=== PATIENT | male | born 1985 | race Caucasian/White ===

== ENCOUNTER → 2016-11-12 | Outpatient (CLI) | payer BC ==
[~2016-11-12] MED LIST: LORCET 5-325 M1 EACH PO; NO MEDICATIONS; PANTOPRAZOLE SO40 MG PO; PHENERGAN25 M1 PO; ZOFRAN PO
--- NOTE | ~2016-11-12 | NM22 ---
[facility] A Service of [facility] RADIOLOGY TEXT RESULTS PATIENT: AMARA WHITFIELD LOCATION: [facility] : 85 UNIT #: [id number] AGE: [address]: Dl Hart MD SEX: M ORDER DR: [id number] [facility] [address] [facility] [address] [place] [place], [place] [address] [id number] O MR#: [id number] Acc #: [id number] NAME: AMARA WHITFIELD : 1985 SEX: M STUDY DATE/TIME: 11/12/2016 15:08 UNIT: [facility] ROOM: STUDY DESCRIPTION: NM Hepatobiliary W GB Pharm Attending Physician: Dl Hart M.D. Referring Physician: Dl Hart M.D. Ordering Physician: Dl Hart M.D. Primary Care Physician: Dl Hart M.D. MEDICAL IMAGING REPORT This report is preliminary unless electronic signature is present EXAM HIDA scan with Kinevac CCK, 11/12/16. HISTORY Right upper quadrant abdominal pain usually after fatty meals during the night with abdominal bloating and gas. Symptoms for 3 years. FINDINGS The patient received an intravenous injection of 5.55 mCi of technetium 99m tagged Choletec for hepatobiliary imaging. One hour following the injection of the radiopharmaceutical the patient received an intravenous injection of 1.8 mcg of Kinevac. There is homogeneous distribution of radiotracer throughout the liver. Gallbladder activity was seen by 15 minutes postinjection of the radiopharmaceutical. Following Kinevac injection, the gallbladder ejection fraction was 97.5% (normal is greater than 30%). IMPRESSION Normal HIDA scan with gallbladder ejection fraction of 97.5%. Dictated by... Marcos Infante M.D. THIS IS AN ELECTRONICALLY VERIFIED REPORT Marcos Infante M.D. at 11/13/2016 9:24 AM MIKE/carolyne TD: 11/12/2016 21:53 JOB #: [id number] MEDICAL IMAGING REPORT Page 1 of 1 COPY
== END | disposition home or self-care (01) ==
LOC: CNUC 11:36
DX: R10.11 Right upper quadrant pain (principal)
CPT/HCPCS: 78227; A9537; J2805

== ENCOUNTER → 2016-12-27 | Day surgery (SDC) | payer BC ==
--- NOTE | ~2016-12-27 | OR ---
Unit #: [id number] #: [id number] Patient: AMARA WHITFIELD [id number] [address] [place], [place] [address] [id number] O MR#: [id number] NAME: AMARA WHITFIELD ROOM: Date of Procedure: 12/27/2016 Admission Date: 12/27/2016 Surgeon: Elvin Castro M.D. : 1985 Attending Physician: Elvin Castro M.D. Primary Care Physician: Dl Hart M.D. OPERATIVE REPORT PREOPERATIVE DIAGNOSES Dyspepsia and right upper quadrant abdominal pain. PROCEDURES PERFORMED Upper gastrointestinal endoscopy. POSTOPERATIVE DIAGNOSES 1. The patient had grade 2 distal erosive esophagitis and erosions ascending above the Z-line and distal esophagus. 2. Rest of the examination up to third part of duodenum was normal. RECOMMENDATIONS 1. Pantoprazole 40 mg p.o. daily. 2. The patient will be followed up in the office in 8 weeks' time. SEDATION USED MAC. DESCRIPTION OF PROCEDURE Following detailed explanation of the potential risks and complications of an upper endoscopy, namely perforation, bleeding, and complications related to sedation, the patient was brought to GI lab and laid in the left lateral decubitus position. Lubricated tip of the Olympus video upper endoscope was passed through the bite block into the proximal esophagus under direct vision. The entire esophageal mucosa was examined and appeared normal. Z-line was nicely demarcated, there being grade 2 distal erosive esophagitis. There was no hiatus hernia. There was also presence of a nonobstructing distal esophageal Schatzki ring. The scope was then advanced into the gastric cavity and the latter was insufflated. Mucosa of the fundus, body, and antrum examined and appeared unremarkable. Pylorus was intubated with visualization of the normal duodenal bulb and second and third part of the duodenum. Upon withdrawal and retroflexion, incisura, cardia, and greater curve examined and no additional findings noted. The scope was then withdrawn in the distal esophagus. The entire esophageal mucosa was examined all the way up to pharynx. The scope was then withdrawn all the way up to pharynx. No additional findings noted. The patient tolerated the procedure without any postprocedure complications. Dictated by... Elvin Castro M.D. Unit #: [id number] #: [id number] Patient: AMARA WHITFIELD KEO/alejandro TD: 12/27/2016 17:05 JOB #: [id number] OPERATIVE REPORT Page 1 of 1 X Elvin Castro MD PROCEDURE OPERATIVE NOTE
--- NOTE | ~2016-12-27 | CR84 ---
[facility] A Service of [facility] & [facility] RADIOLOGY TEXT RESULTS PATIENT: AMARA WHITFIELD LOCATION: [facility] : 85 UNIT #: [id number] AGE: [address]: Elvin Castro MD SEX: M ORDER DR: [id number] [facility] [address] [facility]. [place], [place] [address] [id number] O MR#: [id number] Acc #: [id number] NAME: AMARA WHITFIELD : 1985 SEX: M STUDY DATE/TIME: 12/27/2016 14:58 UNIT: [facility] ROOM: STUDY DESCRIPTION: CR ERCP Biliary and Pancr SI Attending Physician: Elvin Castro M.D. Ordering Physician: Elvin Castro M.D. Primary Care Physician: Dl Hart M.D. MEDICAL IMAGING REPORT This report is preliminary unless electronic signature is present EXAM ERCP, 12/27/2016. HISTORY Right upper quadrant abdominal pain and dilated common bile duct on 12/27/2016. FINDINGS ERCP was performed by Dr. Castro. Six spot film radiographs of the abdomen were obtained and 25 seconds of fluoroscopy time was utilized. Contrast injection of the pancreatic duct was normal. Contrast injection of the biliary tree reveals dilatation of the common bile duct. No filling defects or strictures were seen. There is normal contrast drainage into the duodenum and the distal common bile duct near the sphincter of Oddi was normal. Sphincterotomy was performed by Dr. Castro. A balloon catheter was pulled retrograde through the common duct but no stones were obtained as per Dr. Castro. Dictated by... Marcos Infante M.D. THIS IS AN ELECTRONICALLY VERIFIED REPORT Marcos Infante M.D. at 12/30/2016 6:08 AM MIKE/carolyne TD: 12/27/2016 22:39 JOB #: [id number] MEDICAL IMAGING REPORT Page 1 of 1 COPY
--- NOTE | ~2016-12-27 | OR ---
Unit #: [id number] #: [id number] Patient: AMARA WHITFIELD [id number] [address] [address] [id number] O MR#: [id number] NAME: AMARA WHITFIELD ROOM: Date of Procedure: 12/27/2016 Admission Date: 12/27/2016 Surgeon: Elvin Castro M.D. : 1985 Attending Physician: Elvin Castro M.D. Primary Care Physician: Dl Hart M.D. OPERATIVE REPORT PREOPERATIVE DIAGNOSES The patient has presented with history of right upper quadrant abdominal pain, which is intermittent and intense. In addition, he has been found to have a dilated common bile duct about 11 mm on ultrasound. Incidentally, his liver function studies are normal. PROCEDURES PERFORMED 1. Endoscopic retrograde cholangiopancreatography and sphincterotomy. 2. Endoscopic retrograde cholangiopancreatography and balloon sweep. POSTOPERATIVE DIAGNOSES The patient had evidence of dilated common bile duct about 10 mm with suggestion of papillary stenosis. After a sphincterotomy, the duct was swept with a 9 to 12 mm retrieval balloon multiple times and no stones or debris were seen or delivered. The cystic duct was patent and the gallbladder appeared normal. RECOMMENDATIONS The patient will be followed up in the office in 8 weeks' time. SEDATION USED MAC. DESCRIPTION OF PROCEDURE Following detailed explanation of potential risks and complications of an ERCP, namely perforation, bleeding, complication related to sedation, and pancreatitis, the patient was brought to GI lab and laid in the left semiprone position. Sedation using MAC was given. A lateral-viewing duodenoscope was advanced through the oral cavity into the esophagus and advanced into the stomach. Pylorus was intubated in the usual fashion. The scope was advanced in deep descending duodenum. Upon shortening the scope, major papilla and ampullary area was visualized en face. Using guidewire based cannulation, the common bile duct was cannulated. The guidewire was then advanced into the common bile duct. Contrast cholangiogram was obtained. The latter revealed common bile duct being dilated about 10 mm; however, it was smooth and tapering, there being no filling defects were seen. A limited sphincterotomy is performed and the duct was swept with a 9 to 12 mm retrieval balloon 3 to 4 times. No stones or debris were delivered or seen. Excellent drainage of the bile was seen. Also, the cystic duct was patent and the gallbladder appeared normal. The scope and the accessories were then withdrawn. The patient returned to the recovery area. He tolerated the procedure without any Unit #: [id number] #: [id number] Patient: AMARA WHITFIELD postprocedure complications. Dictated by... Alexx Ramos/alejandro TD: 12/27/2016 17:03 JOB #: [id number] OPERATIVE REPORT Page 1 of 1 X Elvin Castro MD X PROCEDURE OPERATIVE NOTE
== END | disposition home or self-care (01) ==
LOC: COPS 13:16
DX: K20.8 Other esophagitis (principal); K22.10 Ulcer of esophagus without bleeding; K22.2 Esophageal obstruction; K83.8 Other specified diseases of biliary tract; Z98.890 Other specified postprocedural states
CPT/HCPCS: 74330; J1610; J2250; J2550; J3010

== ENCOUNTER 2016-12-30 11:04 | Inpatient (IN) | payer BC ==
[~2016-12-30] VITALS: Ht 182.9 cm; Wt 88.4 kg
--- NOTE | ~2016-12-30 | CT2 ---
[facility] A Service of [facility] & [facility] RADIOLOGY TEXT RESULTS PATIENT: AMARA WHITFIELD LOCATION: [facility] 239-01 : [birth year] UNIT #: [id number] AGE: [address]: Elvin Castro MD SEX: M ORDER DR: [id number] [facility] [address] [facility] [place], [place] [address] [id number] I MR#: [id number] Acc #: [id number] NAME: AMARA WHITFIELD : 1985 SEX: M STUDY DATE/TIME: 12/30/2016 21:46 UNIT: C2A ROOM: 239 STUDY DESCRIPTION: CT Abd and Pelv W Cont Attending Physician: Elvin Castro M.D. Referring Physician: Alana Tapia Aprn Ordering Physician: Elvin Castro M.D. Primary Care Physician: Dl Hart M.D. MEDICAL IMAGING REPORT This report is preliminary unless electronic signature is present EXAM Abdomen and pelvis CT with contrast 12/30/2016 INDICATIONS 31-year-old male with history of acute pancreatitis following the ERCP procedure. Diffuse abdominal pain, bilateral flank pain since having ERCP done on Friday. TECHNIQUE Contrast enhanced CT of the abdomen and pelvis was performed. This CT exam was performed with one or more of the following radiation dose reduction techniques: automatic exposure control, adjustment of mA and/or kV according to patient size, and iterative reconstruction. COMPARISON 12/28/2016. FINDINGS CT ABDOMEN: Included lung bases are clear. There is a noncalcified nodule in the right middle lobe measuring 5 mm. If the patient is at low risk for malignancy, then follow-up CT should occur in 12 months. If the patient is at high risk, followup should occur at 6-12 months. This is indeterminate. Aorta demonstrates no aneurysm or dissection. Circum-aortic left renal vein present as an anatomic variant. Spleen and adrenal glands are normal. Kidneys unremarkable. Incidental tiny left renal cyst measures less than a centimeter. Liver demonstrates pneumobilia. There is also pneumobilia associated with the gallbladder and probable vicarious excretion of contrast or dense contrast material/sludge within the gallbladder, similar to the prior study. No new evidence of intra- or extrahepatic biliary ductal dilatation. [facility] A Service of [facility] RADIOLOGY TEXT RESULTS PATIENT: AMARA WHITFIELD LOCATION: C[facility] 239-01 : 85 UNIT #: [id number] AGE: [address]: Elvin Castro MD SEX: M ORDER DR: There is stranding of the pancreaticoduodenal groove and the peripancreatic fat planes, particularly in the region of the head and uncinate process, most characteristic of acute pancreatitis. There is no new evidence of peripancreatic fluid collection or pseudocyst at this time. There has been interval increase in stranding surrounding the SMV and its tributaries. There is admixture of contrast or perhaps a small amount of incompletely occlusive thrombus within the SMV just proximal to its confluence with the splenic vein and main portal vein (axial image 32). CT PELVIS: Bladder unremarkable. Prostate within normal limits. No drainable fluid collection in the pelvis or free fluid. Bowel demonstrates no obstruction or focal inflammatory change. The appendix is normal. Inguinal canals are unremarkable. Osseous structures demonstrate no suspicious bone lesion. IMPRESSION 1. Imaging findings most characteristic of acute pancreatitis. Probable slight interval worsening of acute pancreatitis compared to the prior study. There is, however, no new drainable fluid collection or new pancreatic ductal dilatation. 2. There is increased stranding in the distribution of the SMV and there is either admixture of contrast or incompletely occlusive thrombus within the SMV, just proximal to its confluence with the splenic vein and main portal vein. This is best demonstrated on axial image number 32. Findings were called to the patient's nurse at the time this dictation with instructions to notify the primary care team. 3. Re-demonstration of pneumobilia involving the gallbladder and intrahepatic biliary system. Probable vicarious excretion of contrast within the gallbladder. 4. There is no evidence of bowel obstruction. The appendix is normal. 5. 5 mm indeterminate on calcified lung nodule right middle lobe. See follow-up recommendations in the body of the report. STAT * RESULT Dictated by... Nicolas Akhtar M.D. THIS IS AN ELECTRONICALLY VERIFIED REPORT Nicolas Akhtar M.D. at 12/30/2016 11:22 PM ERIC/olga TD: 12/30/2016 22:56 JOB #: [id number] [facility]. [facility] A Service of [facility] RADIOLOGY TEXT RESULTS PATIENT: AMARA WHITFIELD LOCATION: [facility] 239-01 : 85 UNIT #: [id number] AGE: [address]: Elvin Castro MD SEX: M ORDER DR: MEDICAL IMAGING REPORT Page 1 of 1 COPY
--- NOTE | ~2016-12-30 | A ---
[facility] Nutrition Therapy DATE: 12/31/16 Patient: AMARA WHITFIELD Physician: MIGUEL Address: [address] [place] [address] Room/Bed: [address] [place] [address], Zip: [place] [address] Admit Date: 12/30/16 Date of : 85 Height: Weight: NUTRITIONAL ASSESSMENT: REASON: 3 NUTRITION RISK PT RE: WEIGHT LOSS PT IS 31 Y.O. MALE ADMITTED FOR ABD PAIN, ACUTE PANCREATITIS PMH: NO KNOWN PMH Anthropometrics: 6'4", WT: 184# (STANDING SCALE) (83.6 KG), BMI: 22.4 Labs: NA+:133, ALB: 3.4 Meds: KCL, PHENERGAN I/O & Bowel function: 3194/2049, LAST BM PER PT 5 DAYS AGO Skin Integrity: NO KNOWN SKIN ISSUES Estimated Nutrition Needs: INCREASED NEEDS 2' WEIGHT LOSS NOTED, DECREASED PO INTAKE AND APPETITE Assessment: CHART REVIEWED AND EVENTS NOTED. PT SEEN FOR 3 NUTRITION RISK PT RE: 15# WEIGHT LOSS. PT REPORTS DECREASED PO INTAKE AND APPETITE PAST 4-5 DAYS D/T ABD PAIN. PT REPORTS LOSING ~15# PAST 4-5 DAYS/SEVERE WEIGHT LOSS NOTED. PT REQUESTED TO BE WEIGHED SO RD BROUGHT STANDING SCALE IN ROOM AND PT WEIGHED TO BE ~184#. PT STATES HIS UBW IS ~198#. THIS RD ENCOURAGED SLOW GRADUAL PO INTAKE, PT AGREED TO ENSURE CLEAR BID, RD TO ORDER. PT REPORTED NO DIET QUESTIONS AT THIS TIME. PLANS IN PLACE TO AWAIT CT SCAN RESULTS. Dx: UNINTENTIONAL WEIGHT LOSS R/T ABD PAIN, DECREASED PO INTAKE AEB PT REPORT ABOVE, ~15# WEIGHT LOSS NOTED IN PAST 4-5 DAYS. Intervention: 1. CLEAR LIQUID DIET 2. ENSURE CLEAR BID Monitoring, Evaluation and Goals: 1. ORAL INTAKE; ADVANCE DIET AND CONSUME/TOLERATE >50% OF MEALS AND SUPPLEMENTS 2. WEIGHTS; PROMOTE HEALTHY WEIGHT MAINTENANCE; PREVENT FURTHER UNINTENTIONAL WEIGHT LOSS 3. LABS; WNL MONITOR: -DIET ADVANCEMENT/PO INTAKE/APPETITE -WEIGHTS [facility] Nutrition Therapy DATE: 12/31/16 Patient: AMARA WHITFIELD Physician: MIGUEL Address: [address] [place] [address] Room/Bed: [address] [place] [address], Zip: [place] [address] Admit Date: 12/30/16 Date of : [birth year] Height: Weight: -LABS Recommendations: 1. PLEASE ORDER MIXED CERVANTES ENSURE CLEAR BID W/MEALS 2. ONCE MEDICALLY FEASIBLE, ADVANCE DIET TO REGULAR -IF CT SCAN CONFIRMS PANCREATITIS OR SBO, ADVANCE DIET TO LOW FAT OR LOW FIBER DIET 3. ONCE DIET ADVANCES, PLEASE ORDER APPROPRIATE SUPPLEMENTS (ENSURE ENLIVE, PUDDING, OR MAGIC CUP) FOR ADDITIONAL PROTEIN AND KCAL 4. ENCOURAGE ADEQUATE PO INTAKE RD WILL F/U PER PROTOCOL PT IS MODERATELY COMPROMISED Respectfully, MARIELA JOHNSON MS, RD, LD [facility] cc: client file
--- NOTE | ~2016-12-30 | DS ---
Unit #: [id number] #: [id number] Patient: AMARA WHITFIELD [id number] [address] [address] [id number] I MR#: [id number] NAME: AMARA WHITFIELD ROOM: 239 Age: 31 Sex: M Admission Date: 12/30/2016 : 1985 Discharge Date: 01/02/2017 Attending Physician: Elvin Castro M.D. Referring Physician: Alana Tapia Aprn Primary Care Physician: Dl Hatr M.D. DISCHARGE SUMMARY FINAL DIAGNOSES 1. Post endoscopic retrograde cholangiopancreatography mild pancreatitis. 2. 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 CONSULTATION OBTAINED DURING CURRENT HOSPITALIZATION Dr. Mateo Shah - Hematology. DISCHARGE MEDICATIONS These included: 1. Zofran 4 mg p.o. q.8 hours p.r.n. nausea. 2. Hydrocodone/acetaminophen 5/325, one p.o. p.r.n. pain q.4 hours. 3. Pantoprazole 40 mg p.o. daily. FOLLOWUP Patient will follow up with me on 01/09/17 at 2 p.m. in the office. Additionally, follow up with Dr. Shah in two weeks. He is also scheduled to have a CT scan of the abdomen and pelvis on Friday, the . This is primarily to look for any (1) thrombus which was somewhat doubtful in the first instance. ISSA Fung is a 31-year-old gentleman who underwent ERCP for dilated common bile duct. The patient underwent an ERCP that showed dilated common bile duct with no defined stricture. Although there was cannulation of the pancreatic duct, slight contrast of the pancreas ended up causing chemical pancreatitis. Patient was thus admitted with pancreatic pain. During his evaluation, CT scan showed doubtful thrombus in the superior mesenteric vein. Dr. Shah was consulted and it was felt that there was no indication for anticoagulation and that this might resolve spontaneously. The repeat CT scan is to address that issue. Dictated by... Alexx Ramos/donald TD: 01/03/2017 11:16 JOB #: [id number] Unit #: [id number] #: [id number] Patient: AMARA WHITFIELD DISCHARGE SUMMARY Page 1 of 1 X Elvin Castro MD X DISCHARGE SUMMARY
--- NOTE | ~2016-12-30 | HP ---
Unit #: [id number] #: [id number] Patient: KENTON WHITFIELD [id number] [address] [address] [id number] I MR#: [id number] NAME: KENTON WHITFIELD ROOM: 239 Age: 31 Sex: M Admission Date: 12/30/2016 : 1985 Attending Physician: Elvin Castro M.D. Referring Physician: Alana Tapia Aprn Primary Care Physician: Dl Hart M.D. HISTORY AND PHYSICAL REASON FOR ADMISSION Abdominal and back pain for the past 48 hours. HISTORY Kenton underwent an ERCP on December 27, 2016. The ERCP was uneventful and basically showed a dilated common bile duct but no stones and mild papillary stenosis. Patient was discharged home feeling well. He came that night to the emergency room and was found to have an amylase and lipase in the 546 range. Patient settled down with oral analgesia and remained well until he came to the office today complaining of pain pretty much diffusely in his abdomen and bilateral both flanks. His appetite has been changed, and he denies any history of vomiting. There is no history of fever, chills, or rigors. PAST MEDICAL HISTORY Right upper quadrant abdominal pain for which the ERCP was done in view of the dilated common bile duct. Patient has had no prior other medical history and has had no abdominal surgeries. MEDICATIONS He is not on any regular medications except for recently prescribed hydrocodone and acetaminophen combination. ALLERGIES No drug allergies. 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 FAMILY HISTORY No family history of colon or pancreatic cancer or liver disease. REVIEW OF SYSTEMS A detailed review of organ systems does not reveal any fever, chills, or rigors, no history of headaches, seizures, chest pain, or syncope, no history of cough, expectoration, or hemoptysis, no history of dysuria, hematuria, or pyuria, and no history of focal seizures or extremity weakness. The rest of the review of organ systems is unremarkable. PHYSICAL EXAMINATION GENERAL: He is awake, alert, oriented, and appears to be in pain. VITAL SIGNS: Stable with temperature of 98.3, pulse 69 per minute and regular, respiratory rate is 18, and blood pressure is 125/76. He weighs 88.4 kg and his BMI is 23. Unit #: [id number] #: [id number] Patient: KENTON WHITFIELD HEENT: He has no pallor, icterus, lymphadenopathy, or peripheral edema. CARDIOVASCULAR: Normal heart sounds. No murmurs. CHEST: Auscultation over the lungs reveals normal breath sounds and good air entry. ABDOMEN: Soft, there being no area of exquisite rigidity, rebound, or guarding. Patient does mention bilateral renal angle tenderness, but this is not reproducible. Bowel sounds are normal. (1) are also normal. DIAGNOSTIC STUDIES LABORATORY: White count of 15,000 with a left shift and no bands, hemoglobin is 15, and platelet count is 243,000. Serum chemistry shows a normal BUN and creatinine, sodium of 134, and potassium of 4. His amylase and lipase are 48 and 28, respectively. Urinalysis shows 1+ protein and no RBCs. CLINICAL IMPRESSION The etiology of patient's abdominal pain and flank pain is unclear. His ERCP was essentially uneventful and a HIDA scan was done prior to ERCP which was normal. Will obtain a CT scan of the abdomen and pelvis with oral and IV contrast and in the meantime keep the patient on IV fluids, clear liquid diet, and analgesia with Dilaudid. He will be reviewed again in the morning, and any further recommendations will be made thereafter. Dictated by Alexx Ramos/marilyn TD: 12/30/2016 20:12 JOB #: [id number] HISTORY AND PHYSICAL Page 1 of 1 X Elvin Castro MD X HISTORY AND PHYSICAL
--- NOTE | ~2016-12-30 | CO ---
Unit #: [id number] #: [id number] Patient: KENTON WHITFIELD [id number] [address] [place], [place] [address] [id number] MR#: [id number] NAME: KENTON WHITFIELD ROOM: 239 Age: 31 Sex: M Admission Date: 12/30/2016 : 1985 Attending Physician: Elvin Castro M.D. Primary Care Physician: Dl Hart M.D. Consultation Date: 12/31/2016 CONSULTATION REPORT REASON FOR CONSULTATION Superior mesenteric vein thrombosis; please evaluate. HISTORY OF PRESENT ILLNESS Mr. Kenton Whitfield is 31 years old with a history of recurrent abdominal pain who, as part of workup, underwent an ERCP on December 27, 2016 for workup of a dilated common bile duct, undergoing a sphincterotomy for mild papillary stenosis. Post procedure four hours later he developed abdominal pain, came to the emergency room, was treated for pancreatitis and discharged home. He presented again back to Dr. Castro's office on 12/30/2016 complaining of more diffuse severe abdominal pain and has been admitted for IV fluids and intravenous pain medications. As part of workup, he underwent a CT scan of the abdomen and pelvis done on 12/30/2016. CT scan revealed pneumobilia of the gallbladder and liver. There was stranding of the pancreatoduodenal groove and peripancreatic fat planes, particularly in the region of the head and uncinate process, most characteristic of acute pancreatitis with interval stranding around the SMV and its tributaries. There is admixture of contrast or perhaps a small amount of incomplete occlusive thrombus in the SMV just proximal to its confluence with the splenic vein and main portal vein leading to this consultation. Mr. Whitfield has been started on Lovenox 60 mg twice a day while awaiting this consultation. He tells me that he continues to remain sore in his abdomen and started clear liquids, which he is tolerating without any nausea. He is constipated, not having had a bowel movement since last . PAST HISTORY Recurrent abdominal pain in the right upper quadrant, thought in the past to be related to constipation, and after a change in diet, this has improved to be q.6 months. An EGD showed gastritis. An ultrasound had shown a dilated CBD leading to his ERCP. PAST SURGICAL HISTORY Meniscectomy by arthroscopic surgery. FAMILY HISTORY Negative for DVT or pulmonary embolism. SOCIAL HISTORY Never smoker. Rarely drinks any alcohol. He is and lives with his . REVIEW OF SYSTEMS A 14-point review of systems was taken. Unit #: [id number] #: [id number] Patient: KENTON WHITFIELD CONSTITUTIONAL: As discussed. EYES: Negative. EARS, NOSE, MOUTH AND THROAT: Negative. CARDIOVASCULAR: Negative. RESPIRATORY: Negative. GASTROINTESTINAL: As discussed. GENITOURINARY: Negative. NEUROLOGIC: Negative. ALLERGIC/LYMPHATICS: Negative. SKIN: Negative. PSYCHIATRIC: Negative. PHYSICAL EXAMINATION GENERAL: On examination this is a pleasant (1) . Performance is a 1. VITALS: Temperature is 98.9, pulse rate 60, blood pressure 130/75, respiratory rate 16. Weight is 194 pounds. HEENT: Head examination shows the pupils are equal and react well to light. No pallor or icterus. Mucous membranes are moist. NECK: Neck without adenopathy, JVD or thyromegaly. CARDIOVASCULAR SYSTEM: First and second heart sounds were heard. Regular with no murmurs, gallops or rubs. LUNGS: Chest expansion is symmetric. Bilateral equal entry with normal breath sounds. ABDOMEN: Abdomen is soft. Slightly tender in the right upper quadrant. Bowel sounds are present. EXTREMITIES: Extremities are warm with good pulses. No edema, cyanosis or clubbing. NEUROLOGIC: He is awake, alert and oriented x3 without any focal findings. PSYCHIATRIC: Normal affect. SKIN: Negative. LYMPHATICS: No palpable lymph nodes. DIAGNOSTIC STUDIES LABS: Amylase is 48, lipase 28 from 12/30/2016. CBC showed a white count of 15.1, hemoglobin 15.3, platelet count 243,000. A complete metabolic panel shows a BUN of 15, creatinine 1.3. LFTs are normal. RADIOLOGY: I personally reviewed the CT scan of the abdomen and pelvis, and as discussed earlier, it shows acute pancreatitis with possible thrombus in the superior mesenteric vein, although this could certainly be related to contrast flow, and if a thrombus, seems nonocclusive. ASSESSMENT AND PLAN I had and extensive discussion with Mr. Whitfield, as well as his step-grandmother who is in the room with him. I discussed that the CT scan shows the possibility of a superior mesenteric thrombus. If present, appears nonocclusive and may be a flow artifact rather than a true thrombus. At this point, he is feeling better, and pancreatitis appears to be resolving and appears likely to be post procedure. On review of the literature, incidental superior mesenteric or mesenteric vein thrombosis accompanying pancreatitis appears to be very commonly occurring in one-fourth to one-third of patients with no proof that anticoagulation changes outcome or recanalization. Given the uncertainty and the fact that it is a nonocclusive thrombus with clinical improvement, I would recommend continued observation with a repeat CT scan to be done on Friday or so, which would be 3 or 4 days from the last, to evaluate for any Unit #: [id number] #: [id number] Patient: KENTON WHITFIELD progression. If he does have progression of thrombus, then anticoagulation would be reasonable; however, in its absence I would not, given little benefit documented in the literature, as well as the likely need if anticoagulation is started for at least 3 months. All of these plans were discussed in detail with the patient, as well as his step-grandmother who is in the room. Dictated by... Alexx Santamaria/ganesh TD: 01/01/2017 13:11 JOB #: [id number] CONSULTATION REPORT Page 1 of 1 X Mateo Shah MD X CONSULTATION REPORT
[~2016-12-30 11:04] MED LIST changes: -PHENERGAN25 M1 PO; -ZOFRAN PO
[2016-12-30 11:42] LABS: BASOPHIL# 0.1 X10e3 (0-0.3); BASOPHIL% 0.4 % (0-2.5); EOSINOPHIL# 0.1 X10e3 (0-0.7); EOSINOPHIL% 0.9 % (0.0-7.0); HEMATOCRIT 45.2 % (38.0-50.0); HEMOGLOBIN 15.3 gm/dL (13.0-16.0); LYMPHOCYTE# 1.3 X10e3 (1.0-3.5); LYMPHOCYTE% 8.7 % (17.0-45.0); MEAN CELL VOLUME 85.9 FL (83-96); MEAN CORPUSCULAR HEMOGLOBIN 29.1 PG (28-34); MEAN CORPUSCULAR HGB CONC 33.9 g/dL (30-36); MEAN PLATELET VOLUME 8.3 FL (6.5-11.5); MONOCYTE# 1.2 X10e3 (0-1.0); MONOCYTE% 8.1 % (3.0-12.0); NEUTROPHIL# 12.3 X10e3 (1.5-7.1); NEUTROPHIL% 81.9 % (40-75); PLATELET COUNT 243 X10e3 (140-420); RED BLOOD COUNT 5.26 X10e (3.90-5.60); RED CELL DISTRIBUTION WIDTH 12.7 % (11.0-15.5); WHITE BLOOD COUNT 15.1 X10e3 (4.0-10.5)
[2016-12-30 11:43] LABS: DIFF IND YES
[2016-12-30 12:10] LABS: AMYLASE 48 U/L (0-46); LIPASE 28 U/L (22-51)
[2016-12-30 12:20] LABS: PLATELET ESTIMATE NORMAL (NORMAL); RBC NORMAL YES
[2016-12-30 12:24] LABS: ALBUMIN SERUM 4.2 g/dL (3.5-5.0); BILIRUBIN,TOTAL 1.2 mg/dL (0.2-2.0); BUN/CREATININE RATIO 11.53; CALCIUM SERUM 9.5 mg/dL (8.4-10.2); CREATININE SERUM 1.3 mg/dL (0.6-1.4); GLOM FILT RATE Estimated 72.7 mL/min (>60); PROTEIN TOTAL SERUM 7.8 g/dL (6.0-8.3)
[2016-12-30] MEDS ORDERED: PHENERGAN25 M1 PO (13:53)
[2016-12-30] MEDS ORDERED: ZOFRAN PO (13:54)
[2016-12-30 15:29] LABS: URINE APPEARANCE CLEAR; URINE BILIRUBIN NEG (NEG); URINE BLOOD NEG (NEG); URINE COLOR YELLOW; URINE GLUCOSE NEG (NEG); URINE KETONE 3+ (NEG); URINE LEUKOCYTE ESTERASE NEG (NEG); URINE NITRATE NEG (NEG); URINE PROTEIN 1+ (NEG)
[2016-12-30 15:32] LABS: URBCS1 AUWI 0-2 /[HPF] (0-2); URINE BACTERIA AUWI NEG (NEGATIVE); URINE SQUAMOUS EPITHELIAL CELL NONE SEEN /[HPF]; UWBCS1 AUWI 0-2 (0-5)
[2016-12-31 05:28] LABS: HEMATOCRIT 39.5 % (38.0-50.0); HEMOGLOBIN 13.5 gm/dL (13.0-16.0); MEAN CELL VOLUME 86.5 FL (83-96); MEAN CORPUSCULAR HEMOGLOBIN 29.5 PG (28-34); MEAN CORPUSCULAR HGB CONC 34.1 g/dL (30-36); MEAN PLATELET VOLUME 8.8 FL (6.5-11.5); RED BLOOD COUNT 4.56 X10e (3.90-5.60); RED CELL DISTRIBUTION WIDTH 12.9 % (11.0-15.5); WHITE BLOOD COUNT 13.2 X10e3 (4.0-10.5)
[2016-12-31 09:09] LABS: ALBUMIN SERUM 3.4 g/dL (3.5-5.0); BILIRUBIN,TOTAL 1.4 mg/dL (0.2-2.0); BUN/CREATININE RATIO 13.33; CALCIUM SERUM 8.4 mg/dL (8.4-10.2); CREATININE SERUM 0.9 mg/dL (0.6-1.4); GLOM FILT RATE Estimated 113.4 mL/min (>60); PROTEIN TOTAL SERUM 6.5 g/dL (6.0-8.3)
[2017-01-01 05:53] LABS: HEMATOCRIT 38.1 % (38.0-50.0); HEMOGLOBIN 12.8 gm/dL (13.0-16.0); MEAN CELL VOLUME 87.3 FL (83-96); MEAN CORPUSCULAR HEMOGLOBIN 29.2 PG (28-34); MEAN CORPUSCULAR HGB CONC 33.5 g/dL (30-36); MEAN PLATELET VOLUME 8.7 FL (6.5-11.5); RED BLOOD COUNT 4.36 X10e (3.90-5.60); RED CELL DISTRIBUTION WIDTH 12.7 % (11.0-15.5); WHITE BLOOD COUNT 9.7 X10e3 (4.0-10.5)
[2017-01-01 06:26] LABS: ALBUMIN SERUM 3.3 g/dL (3.5-5.0); BILIRUBIN,TOTAL 0.7 mg/dL (0.2-2.0); CALCIUM SERUM 8.7 mg/dL (8.4-10.2); CREATININE SERUM 0.9 mg/dL (0.6-1.4); GLOM FILT RATE Estimated 113.4 mL/min (>60); POTASSIUM 4.2 mmol/L (3.5-5.1); PROTEIN TOTAL SERUM 6.6 g/dL (6.0-8.3)
[2017-01-02 06:45] LABS: HEMATOCRIT 39.2 % (38.0-50.0); HEMOGLOBIN 12.9 gm/dL (13.0-16.0); MEAN CELL VOLUME 87.8 FL (83-96); MEAN CORPUSCULAR HEMOGLOBIN 28.9 PG (28-34); MEAN CORPUSCULAR HGB CONC 32.9 g/dL (30-36); MEAN PLATELET VOLUME 8.6 FL (6.5-11.5); RED BLOOD COUNT 4.47 X10e (3.90-5.60); RED CELL DISTRIBUTION WIDTH 12.8 % (11.0-15.5); WHITE BLOOD COUNT 8.4 X10e3 (4.0-10.5)
[2017-01-02 07:25] LABS: ALBUMIN SERUM 3.2 g/dL (3.5-5.0); BILIRUBIN,TOTAL 0.6 mg/dL (0.2-2.0); CALCIUM SERUM 8.7 mg/dL (8.4-10.2); CREATININE SERUM 0.9 mg/dL (0.6-1.4); GLOM FILT RATE Estimated 113.4 mL/min (>60); POTASSIUM 4.4 mmol/L (3.5-5.1); PROTEIN TOTAL SERUM 6.1 g/dL (6.0-8.3)
== END 2017-01-02 11:28 | disposition home or self-care (01) | DRG 440 ==
LOC: CLAB 11:04 → C2A 12:52 → CLAB 13:20 → C2A 13:20
PROVIDERS: Internal Medicine Gastroenterology; Nurse Practitioner
DX: K85.90 Acute pancreatitis without necrosis or infection, unspecified (principal); R93.8 Abnormal findings on diagnostic imaging of other specified body structures
CPT/HCPCS: 74177; 80053; 81003; 82150; 83690; 85025; 85027; J1170; J1650; J2550; J3370; Q9967